=== PATIENT | female | born 1975 | race Hispanic/Latino ===

== ENCOUNTER 2024-06-27 19:02 | Emergency (ER) | payer SELFPAY ==
[2024-06-27] MEDS ORDERED: ALBUTEROL 2.5 MG/3 ML NEB SOL ONE (19:35)
[2024-06-27] MEDS ORDERED: IPRATROPIUM BROM 0.5MG/2.5ML ONE (19:35)
[2024-06-27] MEDS ORDERED: dexAMETHasone 10 MG/ML VIAL ONE (19:36)
[2024-06-27 20:38] LABS: Influenza A Ag Negative; Influenza B Ag Negative
[2024-06-27 20:39] LABS: SARS-CoV-2 Antigen Rapid Res Negative (Negative)
--- NOTE | 2024-06-27 20:43 | RAD REPORT ---
EXAM: Chest Pa And Lat (2 Views) HISTORY: 49 years Female Congestion;Cough COMPARISON: 06/25/2017 FINDINGS: LUNGS/PLEURA: The lungs are clear. No pleural effusions or pneumothorax. No pulmonary edema. CARDIAC/MEDIASTINUM: The cardiac silhouette is within normal limits. UPPER ABDOMEN: No significant abnormality. BONES: No acute abnormality. LINES/TUBES/OTHER: N/A IMPRESSION: No evidence of acute cardiopulmonary disease. No significant change from prior.
--- NOTE | 2024-06-27 21:18 | ER ---
Nurse's Notes [facility] Name: Tamia Palomares Age: 49 yrs Sex: Female : 1975 Arrival Date: 06/27/2024 Time: 19:02 Bed 2 Private MD: Diagnosis: Unspecified asthma, uncomplicated Presentation: 06/27 19:18 Chief complaint: Patient states: cough and sob since this morning. Tried inhaler for me1 asthma and took her oral steroid with no relief. Cough is productive. Denies fever, chills body aches. Coronavirus screen: Vaccine status: Patient reports being unvaccinated. Ebola Screen: No symptoms or risks identified at this time. Initial Sepsis Screen: Does the patient meet any 2 criteria? No. Patient's initial sepsis screen is negative. Risk Assessment: Do you want to hurt yourself or someone else? Patient reports no desire to harm self or others. Onset of symptoms was June 27, 2024 at 08:00. 19:18 Method Of Arrival: Ambulatory ga1 19:18 Acuity: JOSE 3 me1 21:27 Initial Sepsis Screen: Does the patient have a suspected source of infection? No. bm8 Patient's initial sepsis screen is negative. 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 - Infectious Disease History:: Denies. - Social history:: Smoking status: Patient/guardian denies using tobacco. Screenin:45 [facility] ED Fall Risk Assessment (Adult) History of falling in the last 3 months, bm8 including since admission No falls in past 3 months (0 pts) Confusion or Disorientation No (0 pts) Intoxicated or Sedated No (0 pts) Impaired Gait No (0 pts) Mobility Assist Device Used No (0 pt) Altered Elimination No (0 pt) Score/Fall Risk Level 0 - 2 = Low Risk Oriented to surroundings, Maintained a safe environment, Educated pt \T\ family on fall prevention, incl call for assistance when getting out of bed, Assessed \T\ reinforced patient's understanding of fall precautions, Hourly rounding (assess needs \T\ fall precautionary measures) done, Used ambulatory aids as needed (educated on \T\ assisted with), Used gait belt as appropriate. Abuse screen: Denies threats or abuse. Nutritional screening: No deficits noted. Tuberculosis screening: No symptoms or risk factors identified. Assessment: 19:45 General: Appears in no apparent distress. uncomfortable, Behavior is calm, cooperative, bm8 appropriate for age. Pain: Denies pain. Neuro: No deficits noted. Level of Consciousness is awake, alert, obeys commands, Oriented to person, place, time, situation, Appropriate for age. Cardiovascular: Denies chest pain, Heart tones S1 S2 present Capillary refill < 3 seconds in bilateral fingers Patient's skin is warm and dry. Respiratory: Reports shortness of breath cough that is air hunger Airway is patent Respiratory effort is even, labored, Respiratory pattern is regular, symmetrical, Breath sounds with crackles in left lower lobe, right lower lobe, left posterior lower lobe and right posterior lower lobe Breath sounds with wheezes bilaterally. GI: No signs and/or symptoms were reported involving the gastrointestinal system. : No signs and/or symptoms were reported regarding the genitourinary system. EENT: No signs and/or symptoms were reported regarding the EENT system. Derm: No signs and/or symptoms reported regarding the dermatologic system. Musculoskeletal: No signs and/or symptoms reported regarding the musculoskeletal system. 21:06 Reassessment: Patient appears in no apparent distress at this time. Patient and/or bm8 family updated on plan of care and expected duration. Pain level reassessed. Patient is alert, oriented x 3, equal unlabored respirations, skin warm/dry/pink. Patient denies pain at this time. Patient states feeling better. Patient states symptoms have improved. Respiratory: Airway is patent Respiratory effort is even, unlabored, Respiratory pattern is regular, symmetrical, Breath sounds are clear bilaterally. the patient reports symptoms have resolved Denies cough, shortness of breath labored breathing. Vital Signs: 19:18 BP 156 / 87; Pulse 84; Resp 20; Temp 99.7; Pulse Ox 96% ; Weight 81.65 kg; Height 4 ft. me1 11 in. ; Pain 0/10; 19:45 BP 125 / 87; Pulse 87; Resp 20; Temp 99.7; Pulse Ox 99% on Nebulizer Mask; Pain 0/10; bm8 21:06 BP 123 / 79; Pulse 95; Resp 18; Temp 98.2; Pulse Ox 100% on R/A; Pain 0/10; bm8 19:18 Body Mass Index 36.36 (81.65 kg, 149.86 cm) me1 19:18 Pain Scale: Adult me1 19:45 Pain Scale: Adult bm8 21:06 Pain Scale: Adult bm8 [place] Coma Score: 19:45 Eye Response: spontaneous(4). Motor Response: obeys commands(6). Verbal Response: bm8 oriented(5). Total: 15. 21:06 Eye Response: spontaneous(4). Motor Response: obeys commands(6). Verbal Response: bm8 oriented(5). Total: 15. ED Course: 19:04 Patient arrived in ED. mr 19:05 Kush Egale, [facility] 19:05 Que Cain MD is Attending Physician. dr5 19:20 Triage completed. me1 19:20 Arm band placed on Patient placed in an exam room. me1 19:34 Bennie Padilla, RN is Primary Nurse. bm8 19:45 Patient has correct armband on for positive identification. Bed in low position. Call bm8 light in reach. Side rails up X 1. Client placed on continuous cardiac and pulse oximetry monitoring. NIBP monitoring applied. Pulse ox on. NIBP on. Door closed. Noise minimized. Pillow given. Verbal reassurance given. Head of bed elevated. 19:45 No provider procedures requiring assistance completed. COVID swab sent to lab. Flu bm8 and/or RSV swab sent to lab. Initial Neb Treatment Given as ordered. Inserted saline lock: 22 gauge in right hand, using aseptic technique. Blood collected. Flushed with 10 mL NS. 20:23 Chest Pa And Lat (2 Views) XRAY In Process Unspecified. EDMS 21:06 Provided Education on: post er care. bm8 21:06 Patient tolerated procedure well without adverse effect. bm8 21:27 IV discontinued, intact, bleeding controlled, No redness/swelling at site. Pressure bm8 dressing applied. Administered Medications: 19:45 Drug: DuoNeb Nebulize (3:1) (2.5 mg - 0.5 mg) 6 ml Nebulizer once Route: Nebulizer; bm8 21:08 Follow up: Response: No adverse reaction bm8 19:45 Drug: Dexamethasone IVP 10 mg IVP once; (not to exceed 40 mg) Route: IVP; Site: right 8 hand; 21:08 Follow up: Response: No adverse reaction bm8 Medication: 19:45 VIS not applicable for this client. bm8 Outcome: 21:17 Discharge ordered by . sonia 21:27 Discharged to home ambulatory, bm8 21:27 Condition: stable 21:27 Discharge instructions given to patient, Instructed on discharge instructions, follow up and referral plans. no drinking with medication, no driving heavy equipment, medication usage, safety practices, Demonstrated understanding of instructions, follow-up care, medications, 21:28 Prescriptions given X 2, bm8 21:38 Patient left the ED. bm8 Signatures: Dispatcher [employer] EDRI La Nena Mosley, Reg Reg mr Rachel Ocampo, RA RN me1 Bennie Padilla RN RN bm8 Kush Eagle, DISTILLERY SUPERVISOR-C DISTILLERY SUPERVISOR-Cdr5
--- NOTE | 2024-06-27 21:18 | EDPHYS ---
Physician Documentation [facility] Name: Tamia Palomares Age: 49 yrs Sex: Female : 1975 Arrival Date: 06/27/2024 Time: 19:02 Bed 2 Private MD: ED Physician Que Cain HPI: 06/27 22:34 This 49 yrs old Female presents to ER via Ambulatory with complaints of Asthma dr5 Exacerbation, Cough. 22:34 The patient presents to the emergency department with wheezing, Current therapy: dr5 albuterol inhaler, that began at rest. Onset: The symptoms/episode began/occurred this morning. Patient is a 49-year-old female with history of asthma coming in with shortness of breath, cough that started this morning. Patient reports that she took 1 dose of an albuterol inhaler with mild relief. Patient also reports that she took an old prednisone this morning. Patient denies fever.. 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 - Infectious Disease History:: Denies. - Social history:: Smoking status: Patient/guardian denies using tobacco. ROS: 22:34 Constitutional: as per hpi dr5 Exam: 22:34 Constitutional: This is a well developed, well nourished patient who is awake, alert, dr5 and in no acute distress. Head/Face: Normocephalic, atraumatic. Eyes: Pupils equal round and reactive to light, extra-ocular motions intact. Lids and lashes normal. Conjunctiva and sclera are non-icteric and not injected. Cornea within normal limits. Periorbital areas with no swelling, redness, or edema. Neck: Trachea midline, no thyromegaly or masses palpated, and no cervical lymphadenopathy. Supple, full range of motion without nuchal rigidity, or vertebral point tenderness. No Meningismus. Chest/axilla: Normal chest wall appearance and motion. Nontender with no deformity. No lesions are appreciated. Cardiovascular: Regular rate and rhythm with a normal S1 and S2. Normal PMI, no JVD. No pulse deficits. Back: No spinal tenderness. No costovertebral tenderness. Full range of motion. 22:34 Skin: Warm, dry with normal turgor. Normal color with no rashes, no lesions, and no evidence of cellulitis. MS/ Extremity: Pulses equal, no cyanosis. Neurovascular intact. Full, normal range of motion. Neuro: Awake and alert, GCS 15, oriented to person, place, time, and situation. Cranial nerves II-XII grossly intact. Motor strength 5/5 in all extremities. Sensory grossly intact. Cerebellar exam normal. Normal gait. 22:34 Respiratory: mild respiratory distress is noted, Respirations: normal, Breath sounds: wheezing: that is mild, is heard in the left posterior lower lobe, right posterior middle lobe and right posterior lower lobe, Respiratory rate: 24 Vital Signs: 19:18 BP 156 / 87; Pulse 84; Resp 20; Temp 99.7; Pulse Ox 96% ; Weight 81.65 kg; Height 4 ft. me1 11 in. ; Pain 0/10; 19:45 BP 125 / 87; Pulse 87; Resp 20; Temp 99.7; Pulse Ox 99% on Nebulizer Mask; Pain 0/10; bm8 21:06 BP 123 / 79; Pulse 95; Resp 18; Temp 98.2; Pulse Ox 100% on R/A; Pain 0/10; bm8 19:18 Body Mass Index 36.36 (81.65 kg, 149.86 cm) me1 19:18 Pain Scale: Adult me1 19:45 Pain Scale: Adult bm8 21:06 Pain Scale: Adult bm8 [place] Coma Score: 19:45 Eye Response: spontaneous(4). Motor Response: obeys commands(6). Verbal Response: bm8 oriented(5). Total: 15. 21:06 Eye Response: spontaneous(4). Motor Response: obeys commands(6). Verbal Response: bm8 oriented(5). Total: 15. MDM: 19:07 Medical Screening Exam initiated dr5 22:34 Differential diagnosis: acute asthma, reactive airway, URI. Antibiotic administration: dr5 Not indicated, the patient does not have an appreciated infiltrate. Data reviewed: vital signs, nurses notes. I considered the following discharge prescriptions or medication management in the emergency department Medications were administered in the Emergency Department. See MAR. Care significantly affected by the following chronic conditions: Spina bifida, back pain, and asthma. Care significantly affected by the following Social Determinants of Health: Poor access to healthcare and/or lack of insurance, Poor access to transportation, Problems related to employment. Counseling: I had a detailed discussion with the patient and/or guardian regarding the historical points, exam findings, and any diagnostic results supporting the discharge/admit diagnosis, the presence of at least one elevated blood pressure reading (>120/80) during this emergency department visit, lab results, radiology results, the need for outpatient follow up, for definitive care, a family practitioner, to return to the emergency department if symptoms worsen or persist or if there are any questions or concerns that arise at home. Medication response: albuterol nebulizer treatment(s) relieved the patient's symptoms. The patient is no longer wheezing, Dexamethasone. Response to treatment: the patient's symptoms have resolved after treatment, the patient's condition has returned to base line. ED course: Wheezing resolved and patient is feeling much better after DuoNeb x 2 and dexamethasone injection. Patient reports that she would like to have Pulmicort prescribed as that helps her better. I recommended that she follows with primary care doctor this week to get on asthma plan. Patient denies any symptoms on discharge and will follow-up. All questions answered.. 06/27 19:31 Order name: COVID-19 Ag + Flu A+B Ag; Complete Time: 20:39 dr5 06/27 19:31 Order name: Chest Pa And Lat (2 Views) XRAY; Complete Time: 21:15 dr5 Administered Medications: 19:45 Drug: DuoNeb Nebulize (3:1) (2.5 mg - 0.5 mg) 6 ml Nebulizer once Route: Nebulizer; bm8 21:08 Follow up: Response: No adverse reaction bm8 19:45 Drug: Dexamethasone IVP 10 mg IVP once; (not to exceed 40 mg) Route: IVP; Site: right bm8 hand; 21:08 Follow up: Response: No adverse reaction bm8 Disposition: 06/28 09:01 Co-signature as Attending Physician, Que Cain MD I reviewed the patient's care rn provided by the Advanced Practice Provider and agree with the diagnosis and treatment plan. Disposition Summary: 06/27/24 21:17 Discharge Ordered Notes: Location: Home dr5 Condition: Stable dr5 Diagnosis - Unspecified asthma, uncomplicated dr5 Followup: dr5 - With: Emergency Department - When: As needed - Reason: Worsening of condition Followup: dr5 - With: Private Physician - When: 1 - 2 days - Reason: Recheck today's complaints, Continuance of care, Re-evaluation by your physician Discharge Instructions: - Discharge Summary Sheet dr5 - Asthma, Adult dr5 Forms: - Medication Reconciliation Form dr5 - Patient Portal Instructions dr5 - Leadership Thank You Letter dr5 Prescriptions: - Pulmicort Flexhaler 180 mcg/actuation Inhalation Aerosol Powder, Breath Activated - administer 2 inhalation INHALATION route every evening; 1 application; Refills: dr5 0, Product Selection Permitted - Prednisone 20 mg Oral Tablet - take 2 tablets ORAL route once daily for 5 days; 10 tablet; Refills: 0, Product dr5 Selection Permitted Signatures: Dispatcher [employer] EDMS Que Cain MD MD rn Rachel Ocampo, RN RN me1 Bennie Padilla RN RN bm8 Kush Eagle, COP BREAKER-C COP BREAKER-Cdr5 Corrections: (The following items were deleted from the chart) 06/27 19:32 19:32 COVID-19 Ag + Flu A+B Ag+I.LAB.BRZ ordered. EDMS EDMS 19:32 19:32 Chest Pa And Lat (2 Views)+RAD.RAD.BRZ ordered. EDMS EDMS
[2024-06-27 21:59] VITALS: BP 123/79; TEMP 98.2; O2SAT 100
== END 2024-06-27 21:38 | disposition home or self-care (01) ==
LOC: ER 19:02
DX: J45.909 Unspecified asthma, uncomplicated (principal); Z11.52 Encounter for screening for COVID-19
CPT/HCPCS: 36415; 71046; 87428; 94640; 96374; 99285; J1100; J7613; J7644